=== PATIENT | male | born 1990 | race Caucasian/White ===

== ENCOUNTER 2021-11-05 05:26 | Emergency (ER) | payer OTHER ==
[~2021-11-05] VITALS: Ht 162.6 cm; Wt 114.0 kg
[2021-11-05] MEDS ORDERED: IBUPROFEN 800MG TABLET PO ONE (08:30)
[2021-11-05] MEDS ORDERED: IBUP-2029 MT (08:53)
[2021-11-05] MEDS ORDERED: ACETAMINOPHEN 325MG TABLET PO ONE (09:15)
[2021-11-05 09:43] VITALS: BP 133/72
== END 2021-11-05 09:44 | disposition home or self-care (01) ==
LOC: ER 05:26
DX: U07.1 COVID-19 (principal); R00.2 Palpitations
CPT/HCPCS: 93005; 99283